=== PATIENT | male | born 1950 | race Caucasian/White ===

== ENCOUNTER 2020-08-06 09:47 | Emergency (ER) | payer MEDICARE, SELFPAY ==
--- NOTE | ~2020-08-06 | XR_ITS ---
EXAMINATION: XR femur RT min 2V DATE: 08/06/2020 10:42 INDICATION: One-month pain at the proximal right femur TECHNIQUE: Overlapping proximal and distal, AP and lateral views of the right femur were obtained. COMPARISON: None FINDINGS: Right total knee arthroplasty without patellar resurfacing which appears well seated in near-anatomic alignment. No periprosthetic lucency to suggest loosening or infection. No fracture. Mild osteoarthr itis at the right hip and sacroiliac joints. Prominent enthesophytes along the anterior aspect of the greater trochanter, at the anterior iliac spine and at the superior pole of the patella. Soft tissue s are unremarkable. No right knee joint effusion. IMPRESSION: 1. No acute osseous abnormality. 2. Right total knee arthroplasty. 3. Scattered mild degenerative skeletal changes including mild osteoarthritis at the right hip and sa croiliac joints and scattered enthesophytes. Reviewed, dictated and finalized at location A. IMPRESSION: 1. No acute osseous abnormality. 2. Right total knee arthroplasty. 3. Scattered mild degenerative skeletal changes including mild osteoarthritis a t the right hip and sacroiliac joints and scattered enthesophytes.
--- NOTE | ~2020-08-06 | XR_ITS ---
EXAMINATION: XR lumbar spine min 4V DATE: 08/06/2020 10:43 INDICATION: Back pain TECHNIQUE: Anteroposterior, lateral, and bilateral oblique views of the lumbar spine, and cone-down l ateral view of the lumbosacral junction were obtained. COMPARISON: None. FINDINGS: Bone alignment is normal. There is no fracture. There is moderate loss of intervertebral di sc space height at L4-5 and L5-S1. The vertebral body heights are maintained. There is moderate facet osteoarthritis of the lower lumbar spine. Small degenerative osteophytes project from the anterior e ndplates of multiple vertebral bodies. Phleboliths are noted in the pelvis. IMPRESSION: 1. Moderate lumbar spondylosis without acute findings. Reviewed, dictated and finalized at location A.
[2020-08-06 09:55] VITALS: BP 155/82; PULSE 75; RESP 16; TEMP 36.3; O2SAT 99
--- NOTE | 2020-08-06 10:22 | ED.EXTPRO ---
HPI - Extremity Problem General Chief complaint: Extremity Problem,Nontraumatic Stated complaint: R UPPER THIGH PAIN Time Seen by Provider: 08/06/20 10:10 Source: patient Mode of arrival: ambulatory Limitations: no limitations History of Present Illness HPI Narrative: Km Rasmussen is a 69 yo male with a PMH of prediabetes, HTN, high cholesterol, who [facility] with right anterior upper leg pain that has persisted for 3 weeks. It is particularly painful when he sits and flexes his right leg but is not constant, has responded some to Tylenol and ibuprofen and also ice and heat but nothing consistently works. Has talked to his PCP who recommended he possibly get an x-ray Unable to identify situation that exacerbates the pain but states it is always present at some level when he goes to sit down and flexes his thigh Related Data Home Medications Medication Instructions Recorded Confirmed cholecalciferol (vitamin D3) 10 400 unit PO DAILY 03/04/19 08/06/20 mcg (400 unit) capsule Allergies Allergy/AdvReac Type Severity Reaction Status Date / Time No Known Allergies Allergy Verified 08/06/20 09:54 Review of Systems Review of Systems: Narrative: CONSTITUTIONAL: Denies fever, chills, sweats. EYES: Denies visual changes, redness, discharge. ENT: Denies rhinorrhea, congestion, sore throat, otalgia. CARDIOVASCULAR: Denies chest pain, palpitations, edema. RESPIRATORY: Denies dyspnea, wheezing, cough GASTROINTESTINAL: Denies abdominal pain, nausea, vomiting, diarrhea. GENITOURINARY: Denies dysuria, hematuria, abnormal discharge SKIN: Denies rash or itching. NEUROLOGIC: Denies numbness, or focal weakness. PSYCHIATRIC: Denies anxiety or depression. Right anterior thigh pain that fluctuates PMFSH Past Medical History Medical History BPH without obstruction/lower urinary tract symptoms Decreased hearing of both ears Elevated liver enzymes Hypersomnia Polyp of colon Renal insufficiency, mild Family History Family History Other Heart disease Hypertension Social History Social History Smoking status: Never smoker Alcohol intake: current Comments At time of signature, I agree with nursing past medical, surgical, social and family history. There is no relevant family history pertinent to the presenting complaint. Exam Narrative: Exam Narrative: GENERAL: This is a well-nourished, well-developed patient, in mild distress. HEAD: normocephalic, atraumatic. EYES: PERRL. Sclera clear/white. Vision is grossly intact. EARS: External ears normal. Hearing grossly intact. NOSE: External nose normal without nasal discharge, nares without redness, no rhinorrhea. THROAT: Mucous membranes moist, NECK: Neck supple, non-tender CARDIOVASCULAR: Regular rate and rhythm without murmurs, gallops, or rubs. RESPIRATORY: Clear to auscultation. Breath sounds equal bilaterally. No wheezes, rales, or rhonchi. GASTROINTESTINAL: Abdomen soft, non-tender, SKIN: warm, intact with no suspicious lesions or rash, good texture and turgor. NEURO: awake, alert, and oriented to person, place and time. There were no obvious focal neurologic abnormalities. Steady gait EXTREMITIES: Normal range of motion. R thigh- pain is mid to upper anterior, no ecchymosis, no induration, no tenderness or swelling BACK: Nontender without deformity Course Course Emergency Course: Patient here with right anterior thigh pain that is persisted for 3 weeks X-ray of lumbar spine-negative for acute findings, moderate lumbar spondylosis X-ray of femur-no acute osseous abnormality scattered mild degenerative skeletal changes with osteoarthritis Started on baclofen and tramadol Vital Signs Vital signs: Vital Signs Temperature 97.4 F L 08/06/20 09:55 Pulse Rate 75 08/06/20 09:55 Respiratory Rat
== END 2020-08-06 11:35 | disposition home or self-care (01) ==
PROVIDERS: Emergency Provider Nurse Practitioner; PCP Family Medicine
DX: M54.31 Sciatica, right side (principal); N40.0 Benign prostatic hyperplasia without lower urinary tract symptoms; N28.9 Disorder of kidney and ureter, unspecified; I10 Essential (primary) hypertension; E78.00 Pure hypercholesterolemia, unspecified; R73.03 Prediabetes
CPT/HCPCS: 72110; 73552; 99213; G0463

== ENCOUNTER 2020-10-21 14:00 | Outpatient (RCR) | payer MEDICARE, SELFPAY ==
--- NOTE | 2020-09-30 16:24 | PTOPEVAL ---
Thank you for referring Km Rasmussen to [facility].? The patient is scheduled to be seen for therapy? 2 x/week for 8 weeks. Please review, sign, date and return this plan of care CLAUDE. I agree with and certify that the following plan of care is medically necessary. Referring Physician Date Attending Provider: Nadine Chew NP Diagnosis lumbago with right sciatica, polyarthritis Onset 4 months Subjective Information Reports sharp pain of right Query Text:As Reported By Patient/ leg that is severe and cause Family leg to give out. He reports the pain will occur rademly. He is taking OTC medication and a muscle cream for the pain. reports x-ray for back show the back to be a mess. He is normally very active with spliting wood, yardwork. Denies stretching program. He went to acute care 6 wks ago due to increased back and leg pain. He had to catch a falling object a few weeks ago. Currently has pain with lifting, pushing, standing. Increase pain with turn or getting out of bed. Trunk flex can also increase pain. He rides a motorcycle on a regular basis, but has increased pain. Diagnostic Tests X-Rays For This Problem Yes: moderate lumbar spondylosis Pain Assessment Self Report Pain Assessment Right Upper Leg(s) Reported Pain Level 2 Pain Description Sharp Pain Frequency Acute Greatest Pain Intensity 10 Pain Aggravating Factors Exercise/Activity,Lifting Bilateral Lower Back Reported Pain Level 2 Pain Description Aching,Tender on Palpation Pain Frequency Chronic Lowest Pain Intensity 2 Greatest Pain Intensity 2 Cervical and Lumbar ROM Lumbar ROM Lumbar Flexion Active Floor Query Text:Hands to: Lumbar ROM 25% of Normal Lumbar Comments 25% trunk ext, pain with ext motion 50% trunk rotation with increased pain. Lower Extremity Range of Motion General Lower Extremity Range of Motion Limitations
--- NOTE | 2020-10-09 15:44 | PCPTNOTE ---
Called Pt and left voicemail about appointment on 10/27/2020 @ 12:30, requesting to move appointment to 13:00 due to scheduled inservice/meeting.
--- NOTE | 2020-10-22 09:51 | PCPTNOTE ---
Admitting Provider: Attending Provider: Nadine Chew NP Patient:Km Rasmussen Date of :1950 Discharge Discharge Note Patient has requested therapy services be discontinued due to he does feel he has achieved maximal potential with skilled therapy services at this time. He is more aware of his posture, proper functional technique with lifting task, daily task and functional mobility. He demonstrates indep with his home program at this time. Patient?s initial visit was on 09/30/2020 13:30 and he had a total of 4 visits. The goals have been partially met. Thank you for referring this patient to [facility]. Please review, sign, date and return this discharge summary CLAUDE. I have been updated about the patient's current status and I agree with discharge from the above service at this time. Referring Physician Date
== END 2020-10-23 14:33 | disposition home or self-care (01) ==
LOC: ANHPT 14:00
PROVIDERS: PCP Family Medicine; Visit Provider Nurse Practitioner Family
DX: M54.41 Lumbago with sciatica, right side (principal); M15.9 Polyosteoarthritis, unspecified
CPT/HCPCS: 97014; 97110; 97162; G0283

== ENCOUNTER 2024-11-22 17:01 | Emergency (ER) | payer MEDICARE, SELFPAY ==
[2024-11-22] VITALS (13 sets, daily range): BP systolic 118–159; BP diastolic 73–93; PULSE 66–86; RESP 16–20; TEMP 36.4; O2SAT 93–99
--- NOTE | ~2024-11-22 | XR_ITS ---
EXAMINATION: XR chest 1V portable 11/22/2024 17:37 INDICATION: Weakness. PROCEDURE: AP portable chest COMPARISON: 06/10/2010 FINDINGS: The lungs are clear. The cardiomediastinal silhouette is within normal limits. There are no pleural effusions. There is no pneumothorax suspected. IMPRESSION: 1: NO ACUTE CARDIOPULMONARY DISEASE. Reviewed, dictated and finalized at location O.
--- NOTE | 2024-11-22 17:17 | ECG_ITS ---
Test Date: 2024-11-22 17:20:51 Measurements Intervals [place] Rate: 81 P: 23 ND: 248 QRS: 100 QRSD: 140 T: -6 QT: 381 QTc: 445 Interpretive Statements SINUS RHYTHM WITH FIRST DEGREE AV BLOCK RIGHT AXIS DEVIATION INTRAVENTRICULAR CONDUCTION DELAY ST-T WAVE ABNORMALITY IN INFERIOR LEADS- CONSIDER ISCHEMIA BASELINE ARTIFACT- I, II, AVR ABNORMAL ECG No previous ECG available for comparison Electronically Signed On 11-22-2024 17:33:56 CDT by Patricio Bey D.O.
[2024-11-22 17:35] LABS: Hematocrit 43.4 % (42.0-52.0); Hemoglobin 14.7 g/dL (14.0-18.0); Immature Granulocyte Percent A 0.4 % (0-0.5); Lymphocytes Absolute Auto 1.72 K/mm3 (0.9-3.2); Mean Corpuscular HGB Conc 33.9 g/dl (32-36); Mean Corpuscular Hemoglobin 32.1 pg (26-34); Mean Corpuscular Volume 94.8 fl (80-100); Nucleated Red Blood Cells Absolute Auto 0.000 K/mm3 (0.0-0.012); Nucleated Red Blood Cells Perc 0.0 % (0.0-0.2); Platelet Count Result 158 k/mm3 (150-375); Red Blood Count 4.58 M/mm3 (4.6-6.20); White Blood Count 6.8 K/mm3 (4.5-10.0)
[2024-11-22 17:54] LABS: Alanine Aminotransferase 40 U/L (6-50); Albumin Level 4.3 g/dL (3.5-5.1); Alkaline Phosphatase 49 U/L (38-126); Anion Gap 12 mmol/L (4-12); Aspartate Amino Transferase 54 U/L (17-59); Bilirubin,Total 1.2 mg/dL (0.2-1.3); Blood Urea Nitrogen 37 mg/dL (9-20); Calcium 10.0 mg/dL (8.4-10.2); Carbon Dioxide 16 mmol/L (22-30); Chloride 115 mmol/L (98-107); Estimated CRCL calculation 34 ml/min; Estimated Glomerular Filt Rate 37; Glucose 112 mg/dL (65-110); Potassium 4.6 mmol/L (3.4-5.0); Sodium 143 mmol/L (137-145); Total Protein 7.8 g/dL (6.3-8.2)
[2024-11-22] MEDS: SODIUM CHLORIDE 0.9% IV 1,000 ML 999 ML IV CONT (18:00)
--- NOTE | 2024-11-22 18:00 | ED.WEAKNESS ---
HPI - Weakness General Chief complaint: Weakness Stated complaint: fatigue, weakness X1week Time Seen by Provider: 11/22/24 17:17 History of Present Illness HPI Narrative: Patient is a 74-year-old male who presents ER with fatigue and weakness. One week ago during the heated by 3 the patient when out mode his front and back long despite his recommending he only mother front lawn. Since then he is bit been feeling fatigued and [place] of energy. He has had decreased inclination to eat and drink or you even feed his dogs. He recently started eating more today. No fevers or chills. No runny nose or sore throat or productive cough. No chest discomfort. No urinary symptoms. Related Data Allergies Allergy/AdvReac Type Severity Reaction Status Date / Time No Known Allergies Allergy Verified 11/22/24 17:04 Review of Systems Review of Systems: All systems reviewed & are unremarkable except as noted in HPI and below Constitutional: Constitutional: Reports no additional constitutional complaints ENT: Reports system reviewed and no additional complaints, except as documented Cardiovascular: Cardiovascular: Reports no additional cardiovascular complaints Respiratory: Respiratory: Reports no additional respiratory complaints Gastrointestinal: Gastrointestinal: Reports no additional gastrointestinal complaints [facility] Past Medical History Medical History (Updated 11/23/24 @ 00:00 by Background Daemon) Renal insufficiency, mild BUN 23, creatinine 1.48 with GFR 47 on 06/23/2021. BUN 18, creatinine 1.38 with GFR 47 on 12/29/2021. BUN 20 with creatinine 1.10 with GFR 72 on 06/30/2022. BUN 20, creatinine 1.29 with GFR 59 on 01/18/2023. BUN 21, creatinine 1.22 with GFR 63 on 07/26/2023. BUN 21, creatinine 1.25 with GFR 61 on 05/08/2024. Male erectile dysfunction, unspecified No longer sexually active Chronic anxiety BMI 28.0-28.9,adult Post herpetic neuralgia (~04/15/23) left occipital scalp Herpes zoster (~04/15/23) left face Overweight (BMI 25.0-29.9) At low risk for fall (~01/25/23) Encounter for prostate cancer screening PSA 1.69 on 12/29/2021. PSA 1.25 on 01/18/2023. PSA 1.60 on 05/08/2024. At moderate risk for fall (~01/04/22) patient tripped on step on vacation without injury December,. Otherwise average risk. Chronic low back pain with right-sided sciatica BMI 30.0-30.9,adult Obesity (BMI 30.0-34.9) Fatty liver (05/22/13) fatty liver noted on ultrasound of the abdomen on 05/22/13 . AST 25 and ALT 21 on 06/23/2021. AST 31 and ALT 30 on 12/29/2021. AST 28, ALT 27 on 01/18/2023. GGT 70, AST 32, ALT 26 on 05/08/2024. Thrombocytopenia (07/30/15) Platelets 104 on 07/30/2015 with platelets slightly low at 115 . Platelets 112 on 06/23/2021. Platelets 117 01/18/2023. Platelets 114 with WBC 4.0 and hemoglobin 14.5 on 05/08/2024. Functional memory problem Partially due to poor hearing BMI 29.0-29.9,adult Polyp of colon (01/27/12) 2 colon polyps on colonoscopy with Dr. Ng 01/27/2012 Decreased hearing of both ears Bilateral hearing aids Elevated liver enzymes AST normal at 25 with ALT 21 on 06/23/2021. AST 27, ALT 25 on 06/30/2022. Hypersomnia BPH without obstruction/lower urinary tract symptoms Family History Family History Other Heart disease Hypertension Social History Social History Smoking status: Never smoker Alcohol intake: current Drinks per week: 14 Substance use: never Substance use type: does not use Current Housing: Decline to Answer Concerned About Future Housing: Decline to Answer Difficulty Paying Gas/Electric Bills: Decline to Answer Difficulty Paying for Meds: Decline to Answer Currently Unemployed: Decline to Answer Education: Decline to Answer Difficulty w/ Childcare or Family Care: Decline to Answer Exam Narrative: GENERAL: Well-appearing, well-nourished, and in no acute distress. HEAD: Normocephalic, atraumatic. ENT: Mucous membranes moist. CHEST: Clear to auscultation. No respiratory distress. HEART: Regular rate and rhythm. Normal peripheral pulses. ABDOMEN: Soft, nontender, nondistended. EXTREMITIES: Normal range of motion. No edema. SKIN: Warm, dry, no rash. NEURO: Alert and oriented x3. PSYCH: Normal mood and affect. Course Course Emergency Course: Patient resting comfortably. Informed of lab and imaging results. Suspect dehydration from heat exposure. Appropriate for discharge home. Received 1 L IV fluid. Vital Signs Vital signs: Vital Signs Temperature 97.6 F 11/22/24 17:09 Pulse Rate 80 11/22/24 17:09 Respiratory Rate 20 11/22/24 17:09 Blood Pressure 131/73 11/22/24 17:09 Pulse Oximetry 98 11/22/24 17:09 Oxygen Delivery Room Air 11/22/24 17:09 Temperature 97.6 F 11/22/24 17:09 Pulse Rate 66 11/22/24 20:12 Respiratory Rate 18 11/22/24 20:12 Blood Pressure 159/90 H 11/22/24 20:12 Pulse Oximetry 99 11/22/24 20:12 Oxygen Delivery Room Air 11/22/24 17:09 MDM - Weakness Lab Data 11/22/24 17:29 11/22/24 17:29 Labs: Lab Results 11/22/24 11/22/24 11/22/24 Range/Units 17:29 17:52 18:29 WBC 6.8 (4.5-10.0) K/mm3 RBC 4.58 L (4.6-6.20) M/mm3 Hgb 14.7 (14.0-18.0) g/dL Hct 43.4 (42.0-52.0) % MCV 94.8 (80-100) fl MCH 32.1 (26-34) pg MCHC 33.9 (32-36) g/dl RDW 12.4 (11.5-14.5) % Plt Count 158 (150-375) k/mm3 MPV 11.1 H (7.4-10.4) fl Immature Gran % (Auto) 0.4 (0-0.5) % Neut % (Auto) 59.3 (45.5-73.1) % Lymph % (Auto) 25.3 (18.3-44.2) % Howell % (Auto) 13.8 H (2.6-8.5) % Eos % (Auto) 0.9 (0-4.4) % Baso % (Auto) 0.3 (0.2-1.2) % Lymph # (Auto) 1.72 (0.9-3.2) K/mm3 Howell # (Auto) 0.9 H (0.1-0.6) K/mm3 Eos # (Auto) 0.1 (0-0.3) K/mm3 Baso # (Auto) 0.0 (0.0-0.1) K/mm3 Abs Immat Gran (auto) 0.03 (0.00-0.031) K/mm3 Absolute Neuts (auto) 4.0 (1.3-6.7) K/mm3 Absolute Nucleated RBC 0.000 (0.0-0.012) K/mm3 Nucleated RBC % 0.0 (0.0-0.2) % Sodium 143 (137-145) mmol/L Potassium 4.6 (3.4-5.0) mmol/L Chloride 115 H (98-107) mmol/L Carbon Dioxide 16 L (22-30) mmol/L Anion Gap 12 (4-12) mmol/L BUN 37 H (9-20) mg/dL Creatinine 1.82 H (0.7-1.3) mg/dL Estim Creat Clear Calc 34 ml/min Estimated GFR 37 L (59 - ) Glucose 112 H (65-110) mg/dL Calcium 10.0 (8.4-10.2) mg/dL Total Bilirubin 1.2 (0.2-1.3) mg/dL AST 54 (17-59) U/L ALT 40 (6-50) U/L Alkaline Phosphatase 49 (38-126) U/L Total Protein 7.8 (6.3-8.2) g/dL Albumin 4.3 (3.5-5.1) g/dL Urine Color Yellow (Yellow) Urine Appearance Clear (Clear) Urine pH 5.5 (5.0-9.0) Ur Specific [place] 1.023 (1.001-1.035) Urine Protein Trace (Negative) mg/dL Urine Glucose (UA) Negative (Negative) mg/dL Urine Ketones Trace H (Negative) mg/dL Ur Blood (Man) Negative (Negative) Urine Nitrate Negative (Negative) Urine Bilirubin Negative (Negative) Urine Urobilinogen 1.0 (<2.0) mg/dL Leukocyte Esterase Rfl Negative (Negative) NELSON/UL Urine RBC 0-2 (0-2) /hpf Urine WBC 0-5 (0-3) /hpf Ur Squamous Epith Cells Occasional (Few) /hpf Urine Bacteria None seen /hpf Urine Casts 3-5 Influenza A (RT-PCR) Negative (Negative) Influenza B (RT-PCR) Negative (Negative) RSV (RT-PCR) Negative (Negative) SARS-CoV-2 RNA (RT-PCR) Negative (Negative) Discharge Plan Discharge Clinical Impression: Dehydration, Heat exposure Patient Disposition: Home Condition: Stable Instructions: Dehydration (ED) Additional Instructions: Return ER if he cannot keep down food or water, you lose consciousness, you have fever over 100.4? F, or you have additional concerns. Patient Language: Kiswahili Prescriptions: No Action escitalopram oxalate [Lexapro] 10 mg tablet 10 mg PO DAILY Qty: 90 3RF donepezil [Aricept] 10 mg tablet 10 mg PO QHS Qty: 90 3RF metformin 500 mg tablet extended release 24 hr 1,500 mg PO DAILY Qty: 270 3RF cholecalciferol (vitamin D3) 1,250 mcg (50,000 unit) capsule 50,000 unit PO WEEKLY Qty: 4 11RF lisinopril 40 mg tablet 40 mg PO DAILY Qty: 90 3RF metoprolol tartrate 100 mg tablet 100 mg PO Q12H Qty: 180 3RF simvastatin 20 mg tablet 20 mg PO DAILY Qty: 90 3RF amitriptyline 10 mg tablet 10 mg PO . q.h.s. Qty: 90 3RF gabapentin 100 mg capsule 100 mg PO TID Qty: 270 3RF Follow-up/Referrals: Doroteo Arteaga MD [Primary Care Provider, Family Practice] - 1 Week
[2024-11-22 18:32] LABS: Influenza A QL RT-PCR Negative (Negative); Influenza B QL RT-PCR Negative (Negative); RSV RNA, RT-PCR Negative (Negative); SARS-CoV-2 RNA PCR Negative (Negative)
[2024-11-22 19:31] LABS: Add Urine Microscopic? YES; Appearance Urine Clear (Clear); Glucose Urine UA Negative (Negative); Leukocyte Esterase Ur Negative LEU/UL (Negative); Nitrate Urine Negative (Negative); Specific Grav Ur 1.023 (1.001-1.035)
== END 2024-11-22 20:13 | disposition home or self-care (01) ==
PROVIDERS: Emergency Medicine; Student in an Organized Health Care Education/Training Program; Emergency Provider Emergency Medicine; PCP Family Medicine
DX: T67.8XXA Other effects of heat and light, initial encounter (principal); E86.0 Dehydration; Z20.822 Contact with and (suspected) exposure to COVID-19; N28.9 Disorder of kidney and ureter, unspecified; N40.0 Benign prostatic hyperplasia without lower urinary tract symptoms; F41.9 Anxiety disorder, unspecified; Z86.0100 Personal history of colon polyps, unspecified; Z79.84 Long term (current) use of oral hypoglycemic drugs; Z79.899 Other long term (current) drug therapy; X30.XXXA Exposure to excessive natural heat, initial encounter; I44.0 Atrioventricular block, first degree; R94.31 Abnormal electrocardiogram [ECG] [EKG]; I45.9 Conduction disorder, unspecified
CPT/HCPCS: 36415; 71045; 80053; 81001; 85025; 87637; 93005; 96360; 99283; J7030